=== PATIENT | male | born 1965 | race African-American/Black ===

== ENCOUNTER 2018-11-01 17:48 | Emergency (ER) | payer OTHER ==
[~2018-11-01] VITALS: Ht 180.3 cm; Wt 111.4 kg
[2018-11-01] MEDS ORDERED: ADACEL/BOOSTRIX VACCINE (DIPHTH/PERTUSS/ACELL/TETANUS)0.5ML SYR (90715) IM ONE (18:00)
[2018-11-01] MEDS ORDERED: CARV25TA PO (18:15)
[2018-11-01] MEDS ORDERED: D 50CAP3 PO (18:15)
[2018-11-01] MEDS ORDERED: LISI-542 PO (18:15)
[2018-11-01] MEDS ORDERED: BRIL1TAB PO (18:15)
[2018-11-01] MEDS ORDERED: ATOR40TA75 PO (18:15)
[2018-11-01] MEDS ORDERED: FURO40TA2 PO (18:15)
[2018-11-01] MEDS ORDERED: PROT1TAB2 PO (18:15)
[2018-11-01] MEDS ORDERED: SPIR-10 PO (18:15)
[2018-11-01] MEDS ORDERED: ONDANSETRON 4MG/2ML VIAL (J2405) IV ONE (18:30)
[2018-11-01] MEDS: MORPHINE 2 MG/ML 1ML SYRINGE (J2270) IV PRN ×2 (18:35→18:58)
--- NOTE | 2018-11-01 18:47 | REPVR ---
EXAM: CT Maxillofacial Without Contrast EXAM DATE/TIME: 11/01/2018 6:06 PM CLINICAL HISTORY: 53 years old, male; Injury or trauma; Fall; Initial encounter; Blunt trauma (contusions or hematomas); Head/scalp and nose; Loss of consciousness not known TECHNIQUE: Imaging protocol: Axial computed tomography images of the face without intravenous contrast. Coronal and sagittal reformatted images were created and reviewed. Radiation optimization: All CT scans at this facility use at least one of these dose optimization techniques: automated exposure control; mA and/or kV adjustment per patient size (includes targeted exams where dose is matched to clinical indication); or iterative reconstruction. COMPARISON: No relevant prior studies available. FINDINGS: Orbits: No acute intraorbital abnormality. Globes are unremarkable. Sinuses: There is an air-fluid level in the left maxillary sinus consistent with blood within the sinus. Bones/joints: There is no fracture of the nasal bones. There is no fracture the orbits. As seen on sagittal images 41 and 42 probable nondisplaced linear fracture of the posterior wall of the left maxillary sinus. The sinuses are intact. There is no fracture of the mandible. There is no fracture of the zygomatic arches. Soft tissues: No significant facial soft tissue swelling. IMPRESSION: Probable linear nondisplaced fracture of the posterior left maxillary sinus. Patient bones are otherwise intact. Electronically signed by: Mathieu Espinal On 11/01/2018 18:47:06 PM
[2018-11-01 18:55] LABS: HEMATOCRIT 34.6 % (42.0-52.0); HEMOGLOBIN 11.9 g/dl (13.5-17.5); MEAN CORPUSCULAR HEMOGLOBIN 28.7 pg (27.0-33.0); MEAN CORPUSCULAR HGB CONC 34.4 g/dl (32.0-36.5); MEAN CORPUSCULAR VOLUME 83.4 fl (80.0-96.0); PLATELET COUNT, AUTOMATED 222 10^3/uL (150-450); RED BLOOD COUNT 4.15 10^6/uL (4.30-6.10); WHITE BLOOD COUNT 10.1 10^3/uL (4.0-10.0)
--- NOTE | 2018-11-01 19:01 | REPVR ---
EXAM: CT Head Without Contrast EXAM DATE/TIME: 11/01/2018 6:06 PM CLINICAL HISTORY: 53 years old, male; Injury or trauma; Fall; Initial encounter; Blunt trauma (contusions or hematomas) TECHNIQUE: Imaging protocol: Axial computed tomography images of the head without contrast. Radiation optimization: All CT scans at this facility use at least one of these dose optimization techniques: automated exposure control; mA and/or kV adjustment per patient size (includes targeted exams where dose is matched to clinical indication); or iterative reconstruction. COMPARISON: No relevant prior studies available. FINDINGS: Brain: There is no evidence of infarct, hou-white matter differentiation is preserved. There is no hemorrhage or extra-axial collection. There is no mass. Ventricles: There is no hydrocephalus. Bones/joints: Unremarkable. No acute fracture. Sinuses: Visualized sinuses are unremarkable. No fluid levels. Mastoid air cells: Visualized mastoid air cells are well aerated. No mastoid effusion. Soft tissues: There is left lateral scalp soft tissue swelling. IMPRESSION: No intracranial injury or lesion. Electronically signed by: Mathieu Espinal On 11/01/2018 19:01:26 PM
--- NOTE | 2018-11-01 19:06 | REPVR ---
EXAM: CT Cervical Spine Without Contrast EXAM DATE/TIME: 11/01/2018 6:06 PM CLINICAL HISTORY: 53 years old, male; Injury or trauma; Fall; Initial encounter; Blunt trauma TECHNIQUE: Imaging protocol: Axial computed tomography images of the cervical spine without contrast. Coronal and sagittal reformatted images were created and reviewed. Radiation optimization: All CT scans at this facility use at least one of these dose optimization techniques: automated exposure control; mA and/or kV adjustment per patient size (includes targeted exams where dose is matched to clinical indication); or iterative reconstruction. COMPARISON: No relevant prior studies available. FINDINGS: Vertebrae: There is no fracture. Vertebral alignment is normal. Discs/Spinal canal/Neural foramina: There is spondylosis with bony ridges and disc bulges. 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 Soft tissues: Unremarkable. Lungs: Lung apices are normal. IMPRESSION: No fracture. Electronically signed by: Mathieu Espinal On 11/01/2018 19:05:52 PM
[2018-11-01 19:13] VITALS: BP 127/58
[2018-11-01 19:14] LABS: ALBUMIN 3.2 GM/DL (3.2-5.2); ALT/SGPT 43 U/L (12-78); BILIRUBIN,DIRECT 0.2 MG/DL (0.0-0.2); BILIRUBIN,TOTAL 0.6 MG/DL (0.2-1.0); BLOOD UREA NITROGEN 18 MG/DL (7-18); CALCIUM LEVEL 8.5 MG/DL (8.5-10.1); CARBON DIOXIDE LEVEL 20 MEQ/L (21-32); CHLORIDE LEVEL 100 MEQ/L (98-107); CREATININE FOR GFR 0.82 MG/DL (0.70-1.30); ETHYL ALCOHOL (ETHANOL) 0.244 % (0.000-0.010); GLOMERULAR FILTRATION RATE > 60.0 (>56); GLUCOSE, FASTING 154 MG/DL (70-100); POTASSIUM SERUM 3.8 MEQ/L (3.5-5.1); SODIUM LEVEL 134 MEQ/L (136-145); TOTAL PROTEIN 7.5 GM/DL (6.4-8.2)
[2018-11-01] MEDS ORDERED: MORPHINE 4 MG/ML 1ML VIAL/SYRINGE (J2270) IV PRN (19:15)
[2018-11-01 19:28] LABS: INR 1.08; PARTIAL THROMBOPLASTIN TIME 30.3 SECONDS (25.4-37.6); PROTHROMBIN TIME 14.1 SECONDS (12.1-14.4)
== END 2018-11-01 19:31 | disposition short-term general hospital (02) ==
LOC: M ED 17:48 → EDBD 17:48 → M ED 19:31
DX: S00.81XA Abrasion of other part of head, initial encounter (principal); W10.8XXA Fall (on) (from) other stairs and steps, initial encounter; Y92.018 Other place in single-family (private) house as the place of occurrence of the external cause; I10 Essential (primary) hypertension; I25.10 Atherosclerotic heart disease of native coronary artery without angina pectoris; Z79.899 Other long term (current) drug therapy; F17.210 Nicotine dependence, cigarettes, uncomplicated
CPT/HCPCS: 70450; 70486; 72125; 80048; 80076; 85027; 85610; 85730; 90471; 90715; 96374; 96375; 96376; 99284; G0480; J2270; J2405